=== PATIENT | female | born 1935 | race Caucasian/White ===

== ENCOUNTER 2021-05-11 17:52 | Emergency (ER) | payer MEDICARE ==
[2021-05-11 20:01] LABS: RED BLOOD COUNT 4.11 M/UL (4.00-5.10); WHITE BLOOD COUNT 10.4 K/UL (4.5-11.0)
[2021-05-11 20:26] LABS: BUN/CREATININE RATIO 19 (0-10)
== END 2021-05-13 11:25 ==
LOC: ER1 17:52
PROVIDERS: Student in an Organized Health Care Education/Training Program
DX: S00.91XA Abrasion of unspecified part of head, initial encounter (principal); Z20.822 Contact with and (suspected) exposure to COVID-19; W18.30XA Fall on same level, unspecified, initial encounter; Y92.009 Unspecified place in unspecified non-institutional (private) residence as the place of occurrence of the external cause
CPT/HCPCS: 70450; 80053; 80307; 81001; 85027; 99284; U0002

== ENCOUNTER 2021-07-09 15:39 | Emergency (ER) | payer MEDICARE | END 2021-07-10 12:14 | disposition home or self-care (01) | LOC: ER1 15:39 | DX: F03.90 Unspecified dementia, unspecified severity, without behavioral disturbance, psychotic disturbance, mood disturbance, and anxiety (principal); R41.0 Disorientation, unspecified | CPT/HCPCS: 99284 ==